=== PATIENT | female | born 1985 | race American Indian/Alaskan Native ===

== ENCOUNTER 2017-03-26 20:36 | Emergency (ER) | payer SELFPAY | END 2017-03-26 21:25 | disposition left against medical advice (07) | LOC: ED 20:36 | DX: S69.82XA Other specified injuries of left wrist, hand and finger(s), initial encounter (principal); Z53.21 Procedure and treatment not carried out due to patient leaving prior to being seen by health care provider ==

== ENCOUNTER 2018-11-22 17:45 | Emergency (ER) | payer BC, OTHER ==
--- NOTE | 2018-11-22 18:35 | Event Note ---
ED Screening Note Date of service: 11/22/18 Time: 18:33 ED Screening Note: 33 y/o femal comes in for pelvic and back pain. Admits to urinary frequency. No dysuria. This initial assessment/diagnostic orders/clinical plan/treatment(s) is/are subject to change based on patients health status, clinical progression and re- assessment by fellow clinical providers in the ED. Further treatment and workup at subsequent clinical providers discretion. Patient/guardian urged not to elope from the ED as their condition may be serious if not clinically assessed and managed. Initial orders include:
[2018-11-22 18:56] LABS: HCG Qualitative,Urine Negative (Negative)
[2018-11-22 18:59] LABS: Bilirubin,Urine NEG (Negative); Blood,Urine NEG (Negative); Color,Urine Yellow (Yellow); Mucus,Urine FEW /HPF; Protein,Urine <15 mg/dL mg/dL (Negative); Urobilinogen,Urine < 2.0 mg/dL (<2.0)
--- NOTE | 2018-11-22 20:48 | Emergency Department Report ---
ED Female HPI - General Chief complaint: Abdominal Pain Stated complaint: LOWER ABD/BACK PAIN Source: patient Mode of arrival: Ambulatory Limitations: No Limitations - History of Present Illness Initial comments: This is a 33-year-old -[place] female who presents to the emergency room with lower abdominal cramping and back pain for 2 days. Patient also reports vaginal discharge and urinary frequency. She reports suprapubic pain as a cramping intensity that is worse with urination. Last menstrual period was 10/28/2018, A0. She denies nausea, vomiting, diarrhea, dysuria, and hematuria. MD Complaint: vaginal discharge, pelvic pain, possible STD Onset/Timin -: days(s) Location: suprapubic Radiation: non-radiating Severity: moderate Severity scale (0 -10): 7 Quality: cramping Consistency: intermittent Improves with: none Worsens with: urination Are you Now?: No Last Menstrual Period: 10/28/18 EDC: 08/04/19 Associated Symptoms: vaginal discharge. denies: vaginal bleeding, nausea/vomiting, fever/chills, headaches, loss of appetite, dysuria, hematuria, rash, seizure, shortness of breath, syncope, weakness - Related Data Sexually active: Yes : 2 Para: 2 A: 0 Previous Rx's Medication Instructions Recorded Last Taken Type metroNIDAZOLE [Flagyl TAB] 500 mg PO Q12HR #14 tab 11/22/18 Unknown Rx Allergies Allergy/AdvReac Type Severity Reaction Status Date / Time No Known Allergies Allergy Verified 11/22/18 17:48 ED Review of Systems ROS: Stated complaint: LOWER ABD/BACK PAIN Other details as noted in HPI Constitutional: denies: chills, fever Respiratory: denies: cough, shortness of breath, wheezing Cardiovascular: denies: chest pain, palpitations Gastrointestinal: abdominal pain. denies: nausea, diarrhea Genitourinary: frequency, discharge. denies: urgency, dysuria, hematuria, abnormal menses Musculoskeletal: back pain. denies: joint swelling, arthralgia Skin: denies: rash, lesions Neurological: denies: headache, weakness, paresthesias Psychiatric: denies: anxiety, depression ED Past Medical Hx - Past Medical History Hx Congestive Heart Failure: No Hx Diabetes: No Hx Asthma: No Hx COPD: No - Social History Smoking Status: Current Every Day Smoker Substance Use Type: None - Medications Home Medications: Home Medications Medication Instructions Recorded Confirmed Last Taken Type metroNIDAZOLE [Flagyl TAB] 500 mg PO Q12HR #14 tab 11/22/18 Unknown Rx ED Physical Exam - General Limitations: No Limitations General appearance: alert, in no apparent distress, obese - Respiratory Respiratory exam: Present: normal lung sounds bilaterally. Absent: respiratory distress - Cardiovascular Cardiovascular Exam: Present: regular rate, normal rhythm. Absent: systolic murmur, diastolic murmur, rubs, gallop - GI/Abdominal GI/Abdominal exam: Present: soft, normal bowel sounds. Absent: distended, tenderness, guarding, rebound, rigid, organomegaly, mass - External exam: Present: normal external exam. Absent: erythema, swelling, lesions, lacerations, ecchymosis, bleeding Speculum exam: Present: erythema, vaginal discharge (yellowish malodorous frothy). Absent: vaginal bleeding, foreign body Bi-manual exam: Present: normal bi-manual exam. Absent: cervical motion tendernes, adnexal tenderness, adnexal mass, uterine enlargement, uterine tenderness - Back Exam Back exam: Absent: CVA tenderness (R), CVA tenderness (L) - Neurological Exam Neurological exam: Present: alert, oriented X3, normal gait - Psychiatric Psychiatric exam: Present: normal affect, normal mood - Skin Skin exam: Present: warm, dry, intact, normal color. Absent: rash ED Course Vital Signs 11/22/18 11/22/18 11/22/18 18:11 22:52 22:56 Temperature 98 F 98.8 F Pulse Rate 110 H 87 Respiratory 20 18 18 Rate Blood Pressure 135/91 Blood Pressure 119/84 [Right] O2 Sat by Pulse 99 97 98 Oximetry ED Medical Decision Making - Lab Data Lab Results 11/22/18 Range/Units 18:30 Urine Color Yellow (Yellow) Urine Turbidity Cloudy (Clear) Urine pH 5.0 (5.0-7.0) Ur Specific [place] 1.014 (1.003-1.030) Urine Protein <15 mg/dl (Negative) mg/dL Urine Glucose (UA) Neg (Negative) mg/dL Urine Ketones Neg (Negative) mg/dL Urine Blood Neg (Negative) Urine Nitrite Neg (Negative) Ur Reducing Substances Not Reportable Urine Bilirubin Neg (Negative) Urine Ictotest Not Reportable Urine Urobilinogen < 2.0 (<2.0) mg/dL Ur Leukocyte Esterase Mod (Negative) Urine WBC (Auto) 19.0 H (0.0-6.0) /HPF Urine RBC (Auto) 4.0 (0.0-6.0) /HPF U Epithel Cells (Auto) 10.0 (0-13.0) /HPF Urine Mucus Few /HPF Urine Yeast (Budding) Few /HPF Urine HCG, Qual Negative (Negative) - Medical Decision Making Patient was examined by me. Vitals are stable and in no acute distress. A urinalysis, urine hCG, wet prep and gonorrhea and chlamydia was obtained via pelvic exam. Empirically treated with Rocephin 250 mg IM and azithromycin 1 g by mouth. Start metronidazole for bacterial vaginitis. Discharged home in stable condition. Discussed prevention options. F/U with PCP or Health Department. Critical care attestation.: If time is entered above; I have spent that time in minutes in the direct care of this critically ill patient, excluding procedure time. ED Disposition Clinical Impression: Vaginal discharge, STD exposure, Bacterial vaginitis Disposition: TO HOME OR SELFCARE Is pt being admited?: No Does the pt Need Aspirin: No Condition: Stable Instructions: Bacterial Vaginosis (ED), Abdominal Pain (ED) Additional Instructions: Avoid drinking alcohol while taking antibiotics and for 24 hours after completion. Continue safe sexual intercourse. Follow up with Primary Care Provider or health department. Prescriptions: metroNIDAZOLE [Flagyl TAB] 500 mg PO Q12HR #14 tab Referrals: ALEXX MORRISON MD [Primary Care Provider] - 3-5 Days [facility], [facility] [Provider Group] - 3-5 Days [facility] [Provider Group] - 3-5 Days Forms: STI Treatment and Prevention Time of Disposition: 21:56
[2018-11-22] MEDS: IBUPROFEN PO ONE ×2 (21:30→21:51)
[2018-11-22] MEDS ORDERED: ROCEPHIN IM ONE (21:53)
[2018-11-22] MEDS ORDERED: ZITHROMAX PO ONE (21:53)
[2018-11-22] MEDS ORDERED: XYLOCAINE 1% MPF 5 mL INFILTRATI ONE (21:53)
[2018-11-22 22:53] VITALS: BP 119/84
== END 2018-11-22 22:59 | disposition home or self-care (01) ==
LOC: ED 17:45
DX: N76.0 Acute vaginitis (principal); Z20.2 Contact with and (suspected) exposure to infections with a predominantly sexual mode of transmission; F17.200 Nicotine dependence, unspecified, uncomplicated
CPT/HCPCS: 81001; 81025; 87086; 87210; 87591; 96372; 99284; J0696; 87076; 87186

== ENCOUNTER 2020-12-15 14:09 | Emergency (ER) | payer SELFPAY ==
[2020-12-15] MEDS ORDERED: IPRATROPIUM 0.02% NEBU 2.5 ML IH ONE (14:48)
[2020-12-15] MEDS ORDERED: dexAMETHasone 20 MG/5 ML VIAL IM ONE (14:48)
[2020-12-15] MEDS ORDERED: ALBUTEROL 2.5 MG/3 ML NEBU IH ONE (14:48)
--- NOTE | 2020-12-15 15:29 | XRay Report ---
CHEST 2 VIEWS INDICATION / CLINICAL INFORMATION: Chest pain with cough and shortness of breath. COMPARISON: 05/30/18. FINDINGS: SUPPORT DEVICES: None. HEART / MEDIASTINUM: The heart size and pulmonary vasculature are normal. The aorta is normal in jason rodrigo. LUNGS / PLEURA: No significant pulmonary or pleural abnormality. No pneumothorax. ADDITIONAL FINDINGS: There are bilateral nipple piercings. IMPRESSION: No acute abnormality or significant change. Signer Name: Robby Perez MD Signed: 12/15/2020 3:25 PM Workstation Name: [id number]
--- NOTE | 2020-12-15 16:44 | Emergency Department Report ---
ED Asthma HPI - General Chief Complaint: Dyspnea/Respdistress Stated Complaint: CHEST PAIN BREATHING ISSUE Time Seen by Provider: 12/15/20 14:37 Source: patient Mode of arrival: Ambulatory Limitations: No Limitations - History of Present Illness Initial Comments: 35-year-old -[place] female presents to the emergency room stating that she has had shortness of breath and chest tightness. Patient states that it started last night. She reports that she has not had an asthma attack since May. States that she has chest pain when she takes a deep breath. She says heat triggers her asthma. Last menstrual period was 1220. Denies any fever chills mild cough worse at night chest pain with cough. Past medical history of asthma. MD Complaint: "asthma attack", wheezing -: Last night - Related Data Previous Rx's Medication Instructions Recorded Last Taken Type metroNIDAZOLE [Flagyl TAB] 500 mg PO Q12HR #14 tab 11/22/18 Unknown Rx Albuterol Sulfate [Proventil Hfa] 6.7 gm IH TID PRN 1 Days #1 12/15/20 Unknown Rx [email or web address] Prednisone [predniSONE 5 mg (6-Day 5 mg PO .TAPER #1 tab.ds.pk 12/15/20 Unknown Rx Pack, 21 Tabs)] Allergies Allergy/AdvReac Type Severity Reaction Status Date / Time No Known Allergies Allergy Verified 11/22/18 17:48 ED Review of Systems ROS: Stated complaint: CHEST PAIN BREATHING ISSUE Other details as noted in HPI Comment: All other systems reviewed and negative ED Past Medical Hx - Past Medical History Previous Medical History?: Yes Hx Congestive Heart Failure: No Hx Diabetes: No Hx Asthma: Yes Hx COPD: No - Social History Smoking Status: Current Every Day Smoker Substance Use Type: None - Medications Home Medications: Home Medications Medication Instructions Recorded Confirmed Last Taken Type metroNIDAZOLE [Flagyl TAB] 500 mg PO Q12HR #14 tab 11/22/18 Unknown Rx Albuterol Sulfate [Proventil Hfa] 6.7 gm IH TID PRN 1 Days #1 12/15/20 Unknown Rx [email or web address] Prednisone [predniSONE 5 mg (6-Day 5 mg PO .TAPER #1 tab.ds.pk 12/15/20 Unknown Rx Pack, 21 Tabs)] ED Physical Exam - General Limitations: No Limitations General appearance: alert, in no apparent distress - Head Head exam: Present: atraumatic, normocephalic - Eye Eye exam: Present: normal appearance - ENT ENT exam: Present: mucous membranes moist, normal external ear exam - Neck Neck exam: Present: normal inspection, full ROM - Respiratory Respiratory exam: Present: wheezes, rhonchi, accessory muscle use - Cardiovascular Cardiovascular Exam: Present: tachycardia - GI/Abdominal GI/Abdominal exam: Present: soft, normal bowel sounds - Back Exam Back exam: Present: normal inspection - Neurological Exam Neurological exam: Present: alert, oriented X3, normal gait - Psychiatric Psychiatric exam: Present: normal affect, normal mood - Skin Skin exam: Present: warm, dry, intact, normal color. Absent: rash ED Course Vital Signs 12/15/20 14:19 Temperature 98.9 F Pulse Rate 124 H Respiratory 22 Rate Blood Pressure 150/104 O2 Sat by Pulse 98 Oximetry - Reevaluation(s) Reevaluation #1: 12/15/20 1645 Patient's lungs sound much better. Patient's breathing has improved not effortless. No accessory muscles use patient is comfortably. ED Medical Decision Making - Radiology Data Radiology results: report reviewed 35-year-old -Australian female presents to the emergency room stating that she has had shortness of breath and chest tightness. Patient states that it started last night. She reports that she has not had an asthma attack since May. States that she has chest pain when she takes a deep breath. She says heat triggers her asthma. Last menstrual period was 1220. Denies any fever chills mild cough worse at night chest pain with cough. Past medical history of asthma. Patient was given albuterol Atrovent and dexamethasone. Patient reports she felt much better. Patient be discharged home on a prednisone pack albuterol inhaler and referral to [facility]. - Medical Decision Making 35-year-old -Australian female presents to the emergency room stating that she has had shortness of breath and chest tightness. Patient states that it started last night. She reports that she has not had an asthma attack since May. States that she has chest pain when she takes a deep breath. She says heat triggers her asthma. Last menstrual period was sixth 122. Denies any fever chills mild cough worse at night chest pain with cough. Past medical history of asthma. Chest x-ray, albuterol 5 mg inhalation, Atrovent 0.5 mg inhalation. Dexamethasone 10 mg IM. Patient reports that she feels much better after having treatment. Discussed with patient discharged home 1 prednisone pack. And a refill on her inhaler. Patient verbalized understanding Critical care attestation.: If time is entered above; I have spent that time in minutes in the direct care of this critically ill patient, excluding procedure time. ED Disposition Clinical Impression: Asthma Disposition: DC-01 TO HOME OR SELFCARE Is pt being admited?: No Does the pt Need Aspirin: No Condition: Stable Instructions: Asthma (ED), Asthma, Adult, [id number] Additional Instructions: Please complete prednisone pack. Use your inhaler as needed. Follow-up with your primary care provider. Prescriptions: Prednisone [predniSONE 5 mg (6-Day Pack, 21 Tabs)] 5 mg PO .TAPER #1 tab.ds.pk Albuterol Sulfate [Proventil Hfa] 6.7 gm IH TID PRN 1 Days #1 [email or web address] PRN Reason: Wheezing Referrals: [facility] [Provider Group] - 3-5 Days Forms: Work/School Release Form(ED)
[2020-12-15 18:17] VITALS: BP 128/76
--- NOTE | 2020-12-18 17:44 | Electrocardiograph Report ---
[facility] Test Date: 2020-12-15 Test Time: 14:29:45 Pat Name: CHUY BAIRES Department: Room: Gender: F Supervisor [employer]: ZEFERINO : 1985 Requested By: COCO PICHARDO Order Number: [id number] Reading MD: Sukumar Howard Measurements Intervals [place] Rate: 108 P: 64 NV: 175 QRS: 72 QRSD: 83 T: -35 QT: 322 QTc: 432 Interpretive Statements Sinus tachycardia Nonspecific T abnormalities, diffuse leads No previous ECG available for comparison Electronically Signed On 12-18-2020 17:44:13 EDT by Sukumar Howard
== END 2020-12-15 17:54 | disposition home or self-care (01) ==
LOC: ED 14:09
DX: J45.909 Unspecified asthma, uncomplicated (principal); F17.200 Nicotine dependence, unspecified, uncomplicated; Z79.899 Other long term (current) drug therapy
CPT/HCPCS: 71046; 93005; 94640; 96372; 99283; J1100